=== PATIENT | male | born 1965 | race Caucasian/White ===

== ENCOUNTER 2017-12-27 08:57 | Day surgery (SDC) | payer BC ==
[~2017-12-27] VITALS: Ht 190.5 cm; Wt 83.9 kg
[~2017-12-27 08:57] MED LIST: ALLOPURINOL100 MG PO; CENTRUM COMPLE1 EACH PO; FISH OIL 1,0001 EAC7 PO; SAW PALMETTO160 MG PO; ZOCOR40 MG PO
[2017-12-27 09:44] VITALS: BP 127/74
[2017-12-27 13:22] VITALS: BP 114/55
[2017-12-27 13:52] VITALS: BP 129/61
== END 2017-12-27 13:58 | disposition home or self-care (01) ==
LOC: SDC 08:57
DX: H33.21 Serous retinal detachment, right eye (principal); E78.5 Hyperlipidemia, unspecified; N40.1 Benign prostatic hyperplasia with lower urinary tract symptoms; R35.1 Nocturia
CPT/HCPCS: J0690; J2250; J3010; J3300